=== PATIENT | female | born 1945 | race Caucasian/White ===

== ENCOUNTER 2018-11-28 09:29 | Observation (INO) | payer MEDICARE ==
[2018-11-28] MEDS ORDERED: Ondansetron PF 4 MG/2 ML Vial ONE (09:40)
[2018-11-28 10:13] LABS: #Lymphocytes 0.8 thou/uL (1.20-3.40); #Monocytes 0.2 thou/uL (0.11-0.59); #Neutrophils 5.6 thou/uL (1.40-6.50); %Basophils 0.1 % (0.0-1.0); %Eosinophils 0.7 % (0.0-10.0); %Monocytes 3.2 % (0.0-10.0); %Neutrophils 84.1 % (42.0-75.0); Hemoglobin 12.1 g/dL (12.0-16.0); Mean Corpuscular HGB CONC 33.9 g/dL (32.0-36.0); Mean Corpuscular Hemoglobin 25.4 pg (27.0-31.0); Mean Corpuscular Volume 74.9 fL (78.0-98.0); Mean Platelet Volume 9.3 fL (7.4-10.4); Platelet Count 232 thou/uL (130-400); RBC Distribution Width 17.7 % (11.5-14.5); Red Blood Cell (RBC) Count 4.77 mill/uL (4.20-5.40); White Blood Cell (WBC) Count 6.7 thou/uL (4.8-10.8)
[2018-11-28 10:23] LABS: ALT (SGPT) 27 U/L (8-55); AST (SGOT) 32 U/L (5-34); Albumin 4.2 g/dL (3.4-4.8); Alkaline Phosphatase 77 U/L (40-150); Anion Gap 15 mmol/L (10-20); BUN (Urea Nitrogen) 7 mg/dL (9.8-20.1); Bilirubin, Total 0.5 mg/dL (0.2-1.2); CK (CPK) 60 U/L (29-168); Calc. Creatinine Clearance 0 mL/min (70-130); Carbon Dioxide 21 mmol/L (23-31); Chloride 102 mmol/L (98-107); Estimated GFR-MDRD 79; Globulin 3.2 g/dL (2.4-3.5); Glucose 166 mg/dL (83-110); Potassium 3.5 mmol/L (3.5-5.1); Protein, Total 7.4 g/dL (6.0-8.3); Sodium 134 mmol/L (136-145)
[2018-11-28 10:42] LABS: MDiff Complete? YES; Microcytosis SLIGHT = 6-15 cells (100X) (0-5/hpf); Platelet Morphology Comment Appears Adequate; Polychromasia SLIGHT = 2-3 cells (100X) (0-2/hpf)
--- NOTE | 2018-11-28 11:05 | RAD ---
CHEST 1 VIEW: INDICATION: History of a Code Green with epigastric chest pain. COMPARISON: None. FINDINGS: There is elevation of the right hemidiaphragm. Lungs are clear. Heart size is upper limits of fernando l. There is scattered degenerative change. No pleural effusion or pneumothorax is evident. There a re surgical clips in the left axillary region. IMPRESSION: No acute abnormality. POS: CET
--- NOTE | 2018-11-28 11:43 | CT ---
CTA AORTIC DISSECTION PROTOCOL WITH IV CONTRAST AND 3D REFORMATTED IMAGING: Date: 11/28/18 INDICATION: Chest and upper abdominal pain with history of gastroesophageal disease, gastroesophageal reflux dise ase, and breast malignancy. FINDINGS: No comparisons are available. No acute aortic dissection, occlusion, nor aneurysmal dilatation is evident. No central pulmonary emb olus is evident. There is mild right basilar atelectasis. There is postsurgical change of left breast mastectomy. There is a small hiatal hernia. There is wall thickening involving the gastric antrum and proximal duodenum which can be related to p eptic ulcer disease. No free air or free fluid is evident. There is prominent fatty infiltration at the level of the liver with areas of focal fatty sparing benny r the gallbladder fossa. There is nodular contour of the liver that may reflect a component of cirrho sis. Spleen measures 12.6 cm. Adrenal glands appear within normal limits. Kidneys are normal appearing. Pancreas is normal appearing. No free fluid or enlarged lymph nodes are evident. There is a fibroid uterus. Visualized bladder, rectum, and perirectal soft tissues are unremarkable appearing. There is scattered diverticula involving the colon without evidence of active diverticulitis. There is thoracolumbar scoliosis. There is diffuse osteopenia. There is a bony hemangioma within T7. IMPRESSION: 1. No acute aortic stenosis, occlusion, or aneurysmal dilatation. 2. Cholelithiasis. 3. Wall thickening involving the gastric antrum and proximal duodenal bulb suspicious for peptic ulc er disease. Gastroenterology referral recommended. 4. Fatty liver with nodular contour of the liver is suspicious for chronic liver disease and possibl e cirrhosis. 5. Enlargement of the spleen up to 12.6 cm. 6. Cholelithiasis. 7. Fibroid uterus. 8. Colonic diverticulosis. POS: CET
[2018-11-28] MEDS ORDERED: ISOVUE-370 76%-LOCM 1 ML ONE (11:52)
[2018-11-28] MEDS ORDERED: Guaifenesin DM 100-10/5 ML UDCUP PO PRN (12:02)
[2018-11-28] MEDS ORDERED: Bisacodyl 5 MG TAB PO PRN (12:02)
[2018-11-28] MEDS ORDERED: Zolpidem Tartrate 5 MG TAB PO PRN (12:02)
[2018-11-28] MEDS ORDERED: Ondansetron PF 4 MG/2 ML Vial IVP PRN (12:02)
--- NOTE | 2018-11-28 12:10 | PDOC.EVN ---
Event Note - Event Note Event Note: H&P #[id number]
[2018-11-28] MEDS ORDERED: Nitroglycerin 0.4 MG TAB 1 EACH ONE (13:05)
[2018-11-28] MEDS ORDERED: Aspirin Chewable 81 MG TAB ONE ×2 (13:05→13:07)
--- NOTE | 2018-11-28 14:28 | HP ---
ADMITTING COMPLAINT: Chest pain, nausea, vomiting, as well as heartburn. HISTORY OF PRESENT ILLNESS: This is a 73-year-old female with past medical history of hypertension, hyperlipidemia, GERD as well as metastatic breast cancer, presenting to the hospital with a 2-day history of heartburn as well as 1- to 3-hour history of substernal chest pain, pressure-like in nature. The patient states this is the first time this has happened to her. She has not had these symptoms before. Denies any diarrhea, constipation, fevers, chills, or shortness of breath. Positive review of systems were nausea, vomiting, and chest pain. The patient currently states she feels better, but had medical intervention from the ER, was feeling worse before that. The patient otherwise has no other alleviating or aggravating factors. Nephew at bedside. Seen and examined in the ER. All questions answered. ALLERGIES: NO KNOWN DRUG ALLERGIES. HOME MEDICATIONS: See JUL. PAST MEDICAL HISTORY: 1. Hyperlipidemia. 2. GERD. 3. Hypertension. 4. Breast cancer with metastatic disease. SOCIAL HISTORY: Nondrinker and nonsmoker. FAMILY HISTORY: Noncontributory. REVIEW OF SYSTEMS: All systems reviewed. Pertinent positive in HPI, otherwise negative. PHYSICAL EXAMINATION: VITAL SIGNS: Blood pressure 138/88, respiratory rate of 18, temperature of 98, and O2 saturation 99% on room air. GENERAL: The patient lying in bed, in no acute discomfort. Appears overweight. HEENT: Pupils equal, round, and reactive to light and accommodation. Extraocular muscles intact. Oral cavity moist and pink. NECK: Supple, mobile, and nontender. Thyroid appreciated. RESPIRATORY: Clear to auscultation bilaterally. No rales, rhonchi, or wheezing appreciated. CARDIOVASCULAR: Regular rate and rhythm. S1 and S2. No murmurs, rubs, or gallops appreciated. ABDOMEN: Positive right upper quadrant tenderness. Positive Ceballos sign. Otherwise positive bowel sounds. Soft. Mild tenderness to palpation. EXTREMITIES: 2+ peripheral pulses. Trace pitting edema noted in bilateral lower extremities. NEUROLOGIC: Cranial nerves 2 through 12 intact. No loss of motor or sensory function. LABORATORY DATA: Reviewed. IMAGING STUDIES: Reviewed. ASSESSMENT AND PLAN: 1. Chest pain. 2. Right upper quadrant tenderness with positive Ceballos sign. 3. Hypertension. 4. Congestive heart failure. 5. Metastatic breast cancer. 6. Gastroesophageal reflux disease. 7. Hyperlipidemia. PLAN: At this point in time, we will admit the patient to observation services. Tele monitoring. Trend troponins. We will also obtain a HIDA scan to rule out possible biliary dyskinesia. The patient has possible cirrhosis on image studies, possible met lesion to the liver, unclear at this point in time. We will also check an echocardiogram given her lower extremity edema that the patient recently noticed. The patient did not have any shortness of breath or symptoms all those lines, so we will hold off on starting any diuretics for now. We will consider in a.m. the patient otherwise wishes to remain a full code. Case and plan discussed with the patient and her nephew at length. They understood and agreed with this plan. Job ID: [id number]
--- NOTE | 2018-11-28 17:43 | NM ---
EXAM: Nuclear medicine hepatobiliary scan HISTORY: Right upper quadrant abdominal pain TECHNIQUE: A nuclear medicine hepatobiliary scan was performed after administration of 5.2 mCi of jani hnetium 99m mebrofenin. COMPARISON: None FINDINGS: Prompt uptake of the radiopharmaceutical by the liver is seen. No photopenic liver defects are seen. Biliary activity is seen within 12 minutes. Gallbladder activity is not seen and the exam was carried out to 4 hours. Bowel activity is seen within 12 minutes. IMPRESSION: Nonvisualization the gallbladder is concerning for cholecystitis. This may be acute or chronic cholec ystitis. Correlate with LFTs and white blood cell count.
[2018-11-28 20:35] LABS: Troponin I Less than 0.010 ng/mL (< 0.028)
[2018-11-28] MEDS: Heparin 5,000 UNITS/ML VIAL SC SCH (20:54)
[2018-11-28] MEDS ORDERED: hydrALAZINE 20 MG/ML VIAL SLOW IVP PRN (22:20)
[2018-11-28] MEDS ORDERED: cloNIDine 0.1 MG TAB PO PRN (22:20)
[2018-11-29 02:59] LABS: #Monocytes 0.4 thou/uL (0.11-0.59); #Neutrophils 7.4 thou/uL (1.40-6.50); %Eosinophils 0.5 % (0.0-10.0); %Lymphocytes 11.8 % (21.0-51.0); %Monocytes 4.7 % (0.0-10.0); Hemoglobin 11.7 g/dL (12.0-16.0); Mean Corpuscular HGB CONC 33.3 g/dL (32.0-36.0); Mean Corpuscular Hemoglobin 25.1 pg (27.0-31.0); Mean Corpuscular Volume 75.4 fL (78.0-98.0); Mean Platelet Volume 8.9 fL (7.4-10.4); Platelet Count 240 thou/uL (130-400); RBC Distribution Width 17.9 % (11.5-14.5); Red Blood Cell (RBC) Count 4.68 mill/uL (4.20-5.40); White Blood Cell (WBC) Count 8.9 thou/uL (4.8-10.8)
[2018-11-29 03:24] LABS: Troponin I Less than 0.010 ng/mL (< 0.028)
[2018-11-29 03:28] LABS: Anion Gap 14 mmol/L (10-20); BUN (Urea Nitrogen) 9 mg/dL (9.8-20.1); Calc. Creatinine Clearance 0 mL/min (70-130); Calcium 10.1 mg/dL (7.8-10.44); Carbon Dioxide 22 mmol/L (23-31); Chloride 101 mmol/L (98-107); Estimated GFR-MDRD 82; Glucose 136 mg/dL (83-110); Potassium 3.4 mmol/L (3.5-5.1); Sodium 134 mmol/L (136-145)
[2018-11-29 08:10] VITALS: BP 143/71; TEMP 98.5
[2018-11-29] MEDS: Heparin 5,000 UNITS/ML VIAL SC SCH (08:32)
[2018-11-29] MEDS ORDERED: Prevnar 13-Val Conj/PF 0.5 ML SYRINGE IM ONE (09:00)
[2018-11-29] MEDS ORDERED: Aspirin 81 mg Enteric Coated Tablet PO SCH (09:00)
--- NOTE | 2018-11-29 11:00 | DIS ---
DATE OF ADMISSION: 11/28/2018 DATE OF DISCHARGE: 11/29/2018 ADMITTING DIAGNOSES: Chest pain, hyperlipidemia, hypertension, and breast cancer with metastatic disease. DISCHARGE DIAGNOSES: Chest pain, noncardiac in nature; chronic cholecystitis; gastroesophageal reflux disease; hypertension; and history of breast cancer with metastatic disease. HOSPITAL COURSE: This is a 73-year-old female presenting with epigastric chest pain for a duration of 2 to 3 hours. The patient was admitted to Internal Medicine Team. Given pre-existing high risk factors, the patient was evaluated with 3 troponins done over 24 hours, all 3 of which were negative. Basic metabolic panel as well as CBC were normal. The patient also had a HIDA scan done due to suspicion of possible gallbladder issues and was found to have chronic cholecystitis. The patient was given the option to have surgical evaluation in the hospital and potential gallbladder removal in the hospital; however, she stated that she would like to go home, see her PCP, and then schedule for an outpatient evaluation. Given the fact that at point in time of discharge, the patient did not have any symptoms; did not have any nausea, vomiting, diarrhea, constipation, chest pain, fevers, or shortness of breath; she was tolerating diet very well; and did not have any active symptoms of acute cholecystitis flare, it was decided that the patient would be given antibiotics at point in time of discharge. The patient was given Flagyl as well as oral Levaquin to be taken for 5 days and follow up with her outpatient PCP to schedule an outpatient surgical evaluation for possible cholecystectomy if deemed appropriate. The patient at point in time of discharge was stable and did not have any complaints and understood the care plan of care. DISPOSITION: Home. FOLLOWUP: Follow up with PCP within 1 week. MEDICATIONS: See MAR. ACTIVITY: As tolerated with assistance as needed. DIET: Low-fat, low-calorie, high-fiber diet. CONDITION: Stable. PROGNOSIS: Guarded. Once again, case and plan were discussed with the patient at length. She understood and agreed with this plan. Job ID: [id number]
--- NOTE | 2018-12-04 01:28 | EKG ---
Test Reason : CP Blood Pressure : / mmHG Vent. Rate : 067 BPM Atrial Rate : 067 BPM P-R Int : 150 ms QRS Dur : 090 ms QT Int : 422 ms P-R-T Axes : 059 000 057 degrees QTc Int : 445 ms Normal sinus rhythm Moderate voltage criteria for LVH, may be normal variant Borderline ECG Confirmed by ADRIAN IVY DO ([id number]), acquisitions editor BETHANY CLEANING ([id number]) on 12/04/2018 1:27:41 AM Referred By: Confirmed By:ADRIAN IVY DO
== END 2018-11-29 12:10 | disposition home or self-care (01) ==
LOC: ERS 09:29 → ERHOLD 12:42 → 2SW 16:41
PROVIDERS: ADMIT Internal Medicine; ATTEND Internal Medicine
DX: R07.2 Precordial pain (principal); K21.9 Gastro-esophageal reflux disease without esophagitis; E78.5 Hyperlipidemia, unspecified; I11.0 Hypertensive heart disease with heart failure; I50.9 Heart failure, unspecified; C50.919 Malignant neoplasm of unspecified site of unspecified female breast; C79.9 Secondary malignant neoplasm of unspecified site; K76.0 Fatty (change of) liver, not elsewhere classified; R16.1 Splenomegaly, not elsewhere classified; D25.9 Leiomyoma of uterus, unspecified; K57.30 Diverticulosis of large intestine without perforation or abscess without bleeding; K80.10 Calculus of gallbladder with chronic cholecystitis without obstruction; Z79.811 Long term (current) use of aromatase inhibitors; Z79.899 Other long term (current) drug therapy; Z88.0 Allergy status to penicillin; Z88.1 Allergy status to other antibiotic agents
CPT/HCPCS: 71045; 71275; 78227; 80048; 80053; 82550; 83690; 83880; 84484 ×3; 85025 ×2; 90670; 93005; 93306; 96374; 96375; 99285; A9537; G0009; G0378 ×2; 36415; 90471; J0360; J1644; J2405; Q9966

== ENCOUNTER 2019-06-02 09:56 | Outpatient (CLI) | payer MEDICARE ==
--- NOTE | 2019-06-02 10:49 | ULT ---
ULTRASOUND SOFT TISSUE CHEST WALL: History: Soft tissue mass. Comparison: None.. Findings: There is a wider than tall hypoechoic nodule within the left breast dermis. This mass measures 9 mm i n greatest dimension and does not extend into the subdermal fat. No definite extension to the skin surface is appreciated. Impression: Soft tissue mass in the dermis. Given history of mastectomy and if new, this may reflect recurrence g iven the lack of definite skin surface extension to suggest an epidermal inclusion cyst.
--- NOTE | 2019-06-02 14:12 | CT ---
CT Chest Abd Pelvis W Con History: Small cell B cell lymphoma, extranodal. Comparison: No outside imaging was available for review. There is a CT angiogram aortic dissection pr otocol November 28, 2018 available for review. Findings: Mild bronchiectasis right lower lobe and left lower lobe. No suspicious pulmonary nodule. N o pneumothorax. No effusion. Moderate prominent right paratracheal lymph node axial image 21 measures 7 mm short axis although has a retained normal fatty hilum. The pulmonary trunk no significa nt enlargement measures approximately 27 mm. Aortic contour is normal. No pericardial fluid. Prior left mastectomy. Soft tissue nodule along the anterior left dermis superficial to the pectorali s muscle axial image 18 which is unchanged from the 11/28/2018 examination measures approximately 7-8 mm. No axillary adenopathy. No internal mammary adenopathy. The thyroid is unremarkable. Within hepatic segment 8 is an ill-defined hypodense mass near the dome measuring up to 2.5 cm axial image 39. Also hepatic segment 8 adjacent to the portal vein is a 9 mm hypodense mass. Hepatic segment 7 abutting the capsule is a mass measuring up to 3.1 cm. Within hepatic segment 4B in the gal lbladder fossa is a 3 cm mass with capsular retraction. There are other smaller masses within the right lobe of the liver. The left lobe is atrophied. Normal proximal small bowel rotation. Cholelithiasis is present. Numerous calcified uterine fibroids. Dilated gonadal veins. Small fat and fluid containing supraumbilical ventral hernia with a very thin 3-4 mm neck. There is m ild induration of the anterior abdominal wall simultaneous fat. There appears to be a mass versus resolving diverticulitis of the sigmoid colon axial image 91. Exten sive diverticular disease of the descending and sigmoid colon. Numerous small retroperitoneal pelvic lymph nodes. The spleen is unchanged in appearance from the Oct exam and is slightly enlarged. No suspicious osteolytic or osteoblastic lesions. The sternum and manubrium are intact. No acute displaced rib fracture. Impression: 1. Multifocal hepatic masses as described suggesting metastatic disease. 2. Atrophy left lobe of the liver. 3. 7-8 mm soft tissue nodule along the left dermis superficial to the pectoralis major muscle. If thi s is new and the clinically is abnormal, an ultrasound-guided biopsy can be performed although it is relatively similar to the November 2018 exam. 4. Numerous uterine fibroids. 5. Mild infiltration of the anterior subcutaneous fat lower abdominal wall suggesting panniculitis. 6. Cholelithiasis without cholecystitis. 7. Possible mass versus resolving diverticulitis in the sigmoid colon axial image 91. Colonoscopy rec ommended. 8. Small fluid containing supraumbilical hernia with a very thin 3-4 mm neck.
== END 2019-06-02 09:57 | disposition home or self-care (01) ==
LOC: SCSULT 09:56
PROVIDERS: ATTEND Internal Medicine Hematology & Oncology
DX: C78.7 Secondary malignant neoplasm of liver and intrahepatic bile duct (principal); C50.912 Malignant neoplasm of unspecified site of left female breast; K76.89 Other specified diseases of liver; D25.9 Leiomyoma of uterus, unspecified; K80.20 Calculus of gallbladder without cholecystitis without obstruction; K42.9 Umbilical hernia without obstruction or gangrene; R22.2 Localized swelling, mass and lump, trunk
CPT/HCPCS: 71260; 74177

== ENCOUNTER 2019-06-16 07:44 | Day surgery (SDC) | payer MEDICARE ==
[2019-06-15 12:21] VITALS: BMI 36.3
[2019-06-16 08:16] LABS: PTT 32.4 SEC (22.9-36.1); Prothrombin Time 13.6 SEC (12.0-14.7)
[2019-06-16] MEDS ORDERED: Sodium Bicarbonate 2.5 MEQ/5 ML VIAL ONE (08:30)
[2019-06-16 08:37] VITALS: BP 186/71; TEMP 99
[2019-06-16] MEDS ORDERED: Lidocaine 1% PF 5 ML VIAL ONE (09:04)
--- NOTE | 2019-06-16 12:21 | ULT ---
EXAM: US Breast Bx US Guided PROVIDED CLINICAL HISTORY: Patient with history of left breast cancer in left mastectomy many years ago. Patient has a new small focal palpable abnormality in the left anterior chest subcutaneous soft tissues which was seen on a recent CT thorax on 06/02/2019 as well as ultrasound examination on this date. COMPARISON: Prior ultrasound exam and CT examinations on 06/02/2019 TECHNIQUE: The procedure including risks and complications were explained to the patient by Dr. Simpson, and infor [facility] consent was obtained. The area overlying the left chest wall nodule was meticulously prepped and draped in the usual sterile fashion. Initial attempts at fine needle aspiration of the nodule by Dr. Simpson were unsuccessful. As result, the nodule was palpated and imaged by myself. A 25-gauge needle was then placed in the nodule and positioning was confirmed with ultrasound guidance. Fine-nee dle aspiration was performed followed by 3 additional fine-needle aspirations with 25-gauge needle. Preliminary evaluation of the specimens was performed by the pathologist. After fine-needle aspiration was performed, hemostasis was achieved with direct pressure. Dry sterile dressing was placed at puncture sites. The patient tolerated the procedure well and without immediate complication. IMPRESSION: 1. Small hypoechoic nodule subcutaneous soft tissues left chest near the skin surface measuring 7 mm in maximal dimensions. 2. Technically successful fine-needle aspiration of the small hypoechoic nodule left chest correspond ing to patient's palpable abnormality. A total of four 25-gauge fine-needle aspirations were obtained. Initial preliminary evaluation of the nodule by the pathologist suggests atypical cells rel ated to malignancy. Final interpretation is pending.
== END 2019-06-16 10:30 | disposition home or self-care (01) ==
LOC: ULT 07:44
PROVIDERS: ATTEND Internal Medicine Hematology & Oncology
PROC: 0H9U3ZX Drainage of Left Breast, Percutaneous Approach, Diagnostic (ICD-10-PCS; principal; 2019-06-16)
DX: R22.2 Localized swelling, mass and lump, trunk (principal); Z85.3 Personal history of malignant neoplasm of breast; Z79.899 Other long term (current) drug therapy; Z88.0 Allergy status to penicillin; Z88.8 Allergy status to other drugs, medicaments and biological substances
CPT/HCPCS: 19083; 85610; 85730; 88172; 88173; 88177; J2001

== ENCOUNTER 2019-07-31 09:53 | Outpatient (CLI) | payer MEDICARE ==
--- NOTE | 2019-07-31 13:38 | CT ---
CT OF THE CHEST AND ABDOMEN WITH IV CONTRAST INDICATION: 73-year-old female with history of breast cancer COMPARISON: CT of the chest, abdomen and pelvis dated June 02, 2019 FINDINGS: CHEST: Lungs: No suspicious pulmonary nodule is demonstrated. There is mild linear scarring involving the ri ght lower lobe with areas of adjacent bronchiectasis. Pleural space: No effusion. Mediastinum: No pathologically enlarged lymph nodes are evident. Axilla: No pathologically enlarged lymph nodes. There is postprocedural change of a left mastectomy. ABDOMEN: Liver: Multiple hypodense lesions are seen involving the liver consistent with metastatic disease. Th e atrophied left hepatic lobe is stable appearing. The lesion within segment 8 of the right hepatic dome is slightly larger measuring 3.2 cm were previously measured 2.9 cm. The lesion within segment 5 , adjacent to the gallbladder fossa measures 3.8 cm where previously measured up to 3.2 cm. The lesion within segment 7 of the right hepatic lobe measures 2.8 cm previously measured 2.6 cm. The add itional lesion within segment 7 of the right hepatic lobe on image 53 of series 3 measures 2.4 cm were present measuring 2.1 cm. Gallbladder: Stable cholelithiasis Pancreas: Normal. Adrenal glands: Normal. Spleen: Normal. Kidneys and ureters: Normal. No hydronephrosis. Vasculature: There are mild vascular calcifications seen involving the visualized vasculature. Lymph nodes:No lymphadenopathy. Free fluid in abdomen:No free fluid is evident. Osseous structures: No acute osseous abnormality. No destructive osteolytic or osteoblastic lesion i s identified. There is scattered degenerative and osteoarthritic changes. Soft tissues:Normal. IMPRESSION: 1. Worsening hepatic metastatic disease. 2. No evidence to suggest metastatic disease to the thorax. 3. Stable cholelithiasis
== END 2019-07-31 09:54 | disposition home or self-care (01) ==
LOC: SCSCT 09:53
PROVIDERS: ATTEND Internal Medicine Hematology & Oncology
DX: C50.912 Malignant neoplasm of unspecified site of left female breast (principal); C78.7 Secondary malignant neoplasm of liver and intrahepatic bile duct; K80.20 Calculus of gallbladder without cholecystitis without obstruction
CPT/HCPCS: 71260; 74160

== ENCOUNTER 2019-08-18 07:01 | Day surgery (SDC) | payer MEDICARE ==
--- NOTE | 2019-08-16 07:49 | HP ---
HISTORY: Katlin Roper is a 73-year-old female with metastatic breast cancer, followed by Dr. Lei and Dr. Roldan, presents in need of a MediPort for antineoplastic chemotherapy access. The patient is accompanied by her niece. She is allergic to penicillin and erythromycin. The patient has had a left mastectomy in 2004, ER/MA positive, underwent 5 years of letrozole, progressing on Afinitor and exemestane. She relapsed in 2014, found to have pleural and liver metastasis, positive thoracentesis fluid in May of 2019. She developed a small mass over her left chest wall. Biopsy showed atypical cells. She is noted on CAT scan of August 17 to have liver metastasis. She has refused past colonoscopies. She has osteoporosis. Plan is to place a MediPort. She understands risks, benefits, and consents. PAST MEDICAL HISTORY: Hypertension, osteoarthritis, and metastatic breast cancer. PAST SURGICAL HISTORY: Left mastectomy, 0, para 0. 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 She has had foot surgery in 1949 and tonsillectomy. REVIEW OF SYSTEMS: Noncontributory. PHYSICAL EXAMINATION: VITAL SIGNS: Weight 182 pounds, height 59 inches tall. Blood pressure 166/69, heart rate 71 HEAD, EARS, EYES, NOSE, AND THROAT: Unremarkable. LUNGS: Clear to auscultation. CARDIAC: Regular rate and rhythm without murmur or gallop. ABDOMEN: Soft, nontender, obese. Left mastectomy wound well healed. Prosthetic bra in place. ASSESSMENT AND PLAN: Metastatic breast cancer. PLAN: MediPort placement, right chest. She understands risks and benefits and consents. Job ID: [id number]
[2019-08-17 13:19] VITALS: BMI 35.9
[2019-08-18] MEDS ORDERED: Levofloxacin 500 mg/D5W 100 ml Premix Bag ONE (08:11)
[2019-08-18] MEDS ORDERED: Lidocaine 1% w/Epinephrine 1:100K 20 ML VIAL ONE (08:50)
[2019-08-18] MEDS ORDERED: Bupivacaine PF 0.5% 30 ML VIAL ONE (08:50)
[2019-08-18] MEDS ORDERED: Midazolam HCl 2 mg/2 ml Vial ONE (08:54)
[2019-08-18] MEDS ORDERED: PROPOFOL 40 ML ONE (08:54)
[2019-08-18] MEDS ORDERED: Fentanyl 100 MCG/2 ML VIAL ONE (08:54)
[2019-08-18] MEDS ORDERED: Ondansetron PF 4 MG/2 ML Vial ONE (10:10)
--- NOTE | 2019-08-18 10:19 | OP ---
DATE OF PROCEDURE: 08/18/2019 PREOPERATIVE DIAGNOSIS: Recurrent breast cancer. POSTOPERATIVE DIAGNOSIS: Recurrent breast cancer. PROCEDURE PERFORMED: Right subclavian vein MediPort, low-profile, fluoroscopy used. ANESTHESIA: Intravenous sedation, local 0.5% Marcaine 30 mL mixed with 1% Xylocaine with epinephrine 20 mL. DESCRIPTION OF PROCEDURE: The patient was taken to the operating room, where under intravenous sedation, neck and chest were prepared with ChloraPrep and draped in routine fashion. Local anesthetic was infiltrated in the skin and subcutaneous tissue about the operative site. Right subclavian vein infraclavicular approach used to access. Obtained good return of venous blood. J-wire threaded. Trocar catheter removed. Skin site was enlarged sharply. Skin incision was made, carried down to skin and subcutaneous tissue and a subcutaneous pocket created with blunt and sharp dissection, noting good hemostasis. Dilator and Peel-Away sheath were placed over the J-wire in superior vena cava. Dilator and J-wire were removed. Catheter was placed through the Peel-Away sheath. Peel-Away sheath was removed. Catheter tip was placed in optimal position. Superior vena cava catheter tailored to length and connected to the MediPort, which was secured to the chest wall with 2 interrupted sutures of 3-0 Prolene. As a MediPort was placed in the pocket, subcutaneous tissue was approximated with 3-0 Monocryl, skin with subdermal 4-0 Monocryl and [place] glue applied. MediPort accessed with a Ramirez needle, obtaining good return of venous blood and flushed with heparinized saline solution. Final fluoroscopic images revealed good MediPort placement. The patient tolerated the procedure well. Job ID: [id number]
--- NOTE | 2019-08-18 11:09 | RAD ---
PORTABLE CHEST 1 VIEW: Date: 08/18/2019 Time: 0958 hours HISTORY: MediPort placement. FINDINGS/IMPRESSION: Comparison made with exam of 11/28/2018. There is continued elevation of the right hemidiaphragm. The heart size is stable. Postop changes in the left axilla are again seen. There has been placement of a right subclavian Port-A-Cath with tip in the projection of the SVC. No lobar consolidation, pneumothoraces, or large effusions are seen. POS: TPC
[2019-08-18] MEDS ORDERED: PHENYLEPHRINE-NS 100 MCG/ML 10 ML SYRINGE ONE (12:54)
== END 2019-08-18 11:00 | disposition home or self-care (01) ==
LOC: SDC 07:01
PROVIDERS: ATTEND Specialist
PROC: 05H533Z Insertion of Infusion Device into Right Subclavian Vein, Percutaneous Approach (ICD-10-PCS; principal; 2019-08-18)
DX: C50.912 Malignant neoplasm of unspecified site of left female breast (principal); I10 Essential (primary) hypertension; M81.0 Age-related osteoporosis without current pathological fracture; Z79.899 Other long term (current) drug therapy; Z88.0 Allergy status to penicillin; Z88.1 Allergy status to other antibiotic agents; C78.7 Secondary malignant neoplasm of liver and intrahepatic bile duct
CPT/HCPCS: 36561; 71045; C1788; 86300; J1642; J1956; J2250; J2405; J2704; J3010; S0020

== ENCOUNTER 2019-11-07 08:22 | Outpatient (CLI) | payer MEDICARE ==
--- NOTE | 2019-11-07 14:56 | CT ---
CT THORAX WITH CONTRAST CT ABDOMEN WITH CONTRAST CT PELVIS WITH CONTRAST: DATE: 11/07/2019 HISTORY: 74-year-old female with breast cancer with liver metastasis. Restaging for response to treatment. COMPARISON: CT chest and abdomen 07/31/2019 CT chest abdomen pelvis 06/02/2019 TECHNIQUE: IV iodinated contrast media: Administered Oral contrast media: Redicat 2 Single phase scans of thorax, abdomen, and pelvis. FINDINGS: THORAX: No suspicious pulmonary nodule, consolidation, pulmonary edema, pneumothorax, pleural effusion, media stinal lymphadenopathy, thoracic aortic aneurysm, or any significant interval change. Absent left breast. No pericardial effusion. Small sliding hiatal hernia. ABDOMEN: Again noted is the very small, almost absent left lobe of liver. Multifocal small, patchy ill-defined, faint, slightly low-attenuation hepatic lesions, presumably rep resenting metastases, are all very difficult to measure because of their ill-defined, faint margins. Furthermore, slight variance in timing of scan between the previous CT on the current CT res ults in slight differences in enhancement or washout of the margins, thereby further making it difficult to compare sizes of these metastases. However, they are all probably slightly smaller in si ze. For example, in hepatic segment 5 of the right lobe of liver, just lateral to the gallbladder fossa, a lesion was measured as approximately 3.8 x 3.1 x 2 cm. It currently measures 3.5 x 2.5 x 2 c m. (Axial image 54 of 119, series 3; coronal image 67 of 172 series 602; sagittal image 87 of 236 series 603). No new hepatic lesions. Gallstones within nondistended gallbladder. No major pathology of pancreas, kidneys, adrenals, abdomi nal aorta. No ascites, small bowel dilation, pneumoperitoneum, or any other significant interval change. PELVIS: Huge, heavily calcified 11 x 6 x 6.5 cm calcified pedunculated leiomyoma. Protruding anteriorly from right side of the atrophic, postmenopausal uterus. Posterior to that, there is a large, 5 x 4.5 x 4 cm heavily calcified leiomyoma exophytically protruding from the right posterior aspect of the uterus . Moderately large amount of stool and enteric contrast material expands the rectum. Slightly enlarged bilateral internal and external iliac chain lymph nodes. No free fluid. No colonic diverticu litis. No interval change overall compared to 11/28/2018. SKELETON: At approximately T7, there is either a large hemangioma of bone or Paget's disease involving the vert ebral body. Multilevel degenerative disc disease. Mild scoliosis at thoracic lumbar junction. No destructive osseous lesion. IMPRESSION: 1) apparent slight interval decrease in sizes of the multiple hepatic metastatic lesions 2) no other interval change 3) cholelithiasis. 4) 2 large, pedunculated, heavily calcified uterine leiomyomata (fibroids)
== END 2019-11-07 08:23 | disposition home or self-care (01) ==
LOC: SCSCT 08:22
PROVIDERS: ATTEND Internal Medicine Hematology & Oncology
DX: C50.912 Malignant neoplasm of unspecified site of left female breast (principal); C78.7 Secondary malignant neoplasm of liver and intrahepatic bile duct; K80.20 Calculus of gallbladder without cholecystitis without obstruction; D25.9 Leiomyoma of uterus, unspecified
CPT/HCPCS: 71260; 74177

== ENCOUNTER 2020-03-11 08:14 | Outpatient (CLI) | payer MEDICARE ==
--- NOTE | 2020-03-11 11:39 | CT ---
CT Chest Abd Pelvis W Con History: Breast cancer Comparison: CT chest abdomen and pelvis November 07, 2019 Findings: Mild bronchiectasis and scarring right middle lobe and right lower lobe. Chronic elevation right hemidiaphragm. No suspicious pulmonary nodule. No pneumothorax. No effusion. Prior left mastectomy. No axillary adenopathy. No right axillary adenopathy. No mediastinal adenopath y. The aortic contour is normal without aneurysmal dilatation. Small fat-containing umbilical hernia. No significant size change of the hepatic segment 8 mass measuring 2.3 cm in greatest dimension. No s ignificant size change of the hepatic segment 7 mass with peripheral retraction measuring up to 3.1 cm. Small 5 to 6 mm mass hepatic segment 5 is also unchanged. There is associated capsular retraction. He patic segment 5 mass adjacent to the gallbladder fossa is also unchanged measuring 2.4 cm with peripheral capsular retraction. No dilated loops of large or small bowel. Large calcified fibroids. Endometrial mass with adjacent fl uid surrounding it, unchanged from the comparison exam and may reflect a submucosal polyp versus fibroid. This is similar dating back to 2019. Similar appearance of the spleen was slightly enlarged. Adrenal glands unremarkable. No hydronephrosi s. No retroperitoneal periaortic adenopathy. Moderate facet arthrosis of the lower lumbar spine. Scattered hemangiomas. Healing manubrial fracture. No acute displaced rib fracture. No acute pathologic fracture. The osseous pelvis is intact. Impression: 1. Stable disease without interval growth of the hepatic masses. Given the adjacent peripheral capsul ar retraction, posttreatment scar is currently favored. 2. No new foci of metastatic disease. 3. No acute inflammatory process within the chest, abdomen or pelvis. 4. Endometrial mass with adjacent fluid in the endometrial cavity is unchanged from 2019 may reflect a mucosal polyp or fibroid. Nonemergent follow-up pelvic ultrasound may be beneficial. 5. Cholelithiasis without cholecystitis. 6. Small paraesophageal hernia.
== END 2020-03-11 08:15 | disposition home or self-care (01) ==
LOC: SCSCT 08:14
PROVIDERS: ATTEND Internal Medicine Hematology & Oncology
DX: C50.912 Malignant neoplasm of unspecified site of left female breast (principal); C78.7 Secondary malignant neoplasm of liver and intrahepatic bile duct; K80.20 Calculus of gallbladder without cholecystitis without obstruction; R16.0 Hepatomegaly, not elsewhere classified; N85.8 Other specified noninflammatory disorders of uterus; K44.9 Diaphragmatic hernia without obstruction or gangrene
CPT/HCPCS: 71260; 74177

== ENCOUNTER 2021-07-07 08:12 | Outpatient (CLI) | payer MEDICARE | END 2021-07-07 08:13 | disposition home or self-care (01) | LOC: CT 08:12 | PROVIDERS: ATTEND Internal Medicine Hematology & Oncology | DX: C50.912 Malignant neoplasm of unspecified site of left female breast (principal); C78.7 Secondary malignant neoplasm of liver and intrahepatic bile duct; K80.20 Calculus of gallbladder without cholecystitis without obstruction; D25.9 Leiomyoma of uterus, unspecified; K57.90 Diverticulosis of intestine, part unspecified, without perforation or abscess without bleeding; M47.9 Spondylosis, unspecified | CPT/HCPCS: 71260; 74177; 78306; 82565; A9503 ==

== ENCOUNTER 2021-09-29 09:13 | Outpatient (CLI) | payer MEDICARE ==
[2021-09-29] MEDS ORDERED: Iopamidol-370 76% 500 ML 1 ML ONE (09:15)
== END 2021-09-29 09:14 | disposition home or self-care (01) ==
LOC: BICCT 09:13
PROVIDERS: ATTEND Internal Medicine Hematology & Oncology
DX: C50.912 Malignant neoplasm of unspecified site of left female breast (principal); C78.7 Secondary malignant neoplasm of liver and intrahepatic bile duct
CPT/HCPCS: 71260; 74177; Q9967

== ENCOUNTER 2021-11-13 12:53 | Inpatient (IN) | payer MEDICARE ==
[~2021-11-13 12:53] MED LIST: ISOVUE-370 76%-LOCM 1 ML ONE
[2021-11-13 14:18] LABS: Hemoglobin 6.8 g/dL (12.0-16.0); Mean Corpuscular HGB CONC 34.2 g/dL (32.0-36.0); Mean Corpuscular Hemoglobin 35.1 pg (27.0-31.0); Platelet Count 63 thou/uL (130-400); RBC Distribution Width 21.4 % (11.5-14.5); Red Blood Cell (RBC) Count 1.94 mill/uL (4.20-5.40); White Blood Cell (WBC) Count 1.5 thou/uL (4.8-10.8)
[2021-11-13 14:25] LABS: ALT (SGPT) 23 U/L (8-55); AST (SGOT) 44 U/L (5-34); Albumin 2.5 g/dL (3.4-4.8); Alkaline Phosphatase 69 U/L (40-110); Anion Gap 14 mmol/L (10-20); BUN (Urea Nitrogen) 55 mg/dL (9.8-20.1); Bilirubin, Total 3.8 mg/dL (0.2-1.2); Calc. Creatinine Clearance 0 mL/min (70-130); Calcium 8.3 mg/dL (7.8-10.44); Carbon Dioxide 25 mmol/L (23-31); Chloride 95 mmol/L (98-107); Glucose 137 mg/dL (83-110); Potassium 3.2 mmol/L (3.5-5.1); Protein, Total 4.5 g/dL (5.8-8.1); Sodium 131 mmol/L (136-145)
[2021-11-13 14:47] LABS: Band 4 % (5-11); Lymphocytes 66 % (21-51); MDiff Complete? YES; Neutrophil 30 % (42-75); Ovalocytes SLIGHT = 2-5 cells (100X) (0-1/hpf); Platelet Morphology Comment Appears Decreased; Polychromasia SLIGHT = 2-3 cells (100X) (0-2/hpf); Reflex for Review?? YES; Schistocytes SLIGHT = 2-5 cells (100X) (0-1/hpf); Tear Drops SLIGHT = 2-5 cells (100X) (0-1/hpf)
[2021-11-13 14:49] LABS: CKMB 2.1 ng/mL (0-6.6)
[2021-11-13] MEDS ORDERED: Aspirin 325 MG TAB ONE (16:12)
[2021-11-13] MEDS ORDERED: Potassium Chloride 20 MEQ TAB PO SCH ×2 (16:15→19:30)
[2021-11-13] MEDS ORDERED: Ondansetron ODT 4 MG TAB SL PRN (17:45)
[2021-11-13] MEDS ORDERED: Acetaminophen 325 MG TAB PO PRN ×2 (17:45→18:37)
[2021-11-13] MEDS ORDERED: Ondansetron PF 4 MG/2 ML Vial IVP PRN ×2 (17:45→18:37)
[2021-11-13] MEDS ORDERED: Sodium Chloride 0.9% 1,000 ML IV SCH (17:45)
[2021-11-13] MEDS ORDERED: NS 0.9% w/ 20 MEQ KCL 1,000 ML/1,000 ML BAG IV SCH (18:37)
[2021-11-13] MEDS: Furosemide 40 MG/4 ML VIAL SLOW IVP SCH (21:00)
[2021-11-14 04:59] LABS: Anion Gap 14 mmol/L (10-20); BUN (Urea Nitrogen) 52 mg/dL (9.8-20.1); Calc. Creatinine Clearance 53 mL/min (70-130); Calcium 7.9 mg/dL (7.8-10.44); Carbon Dioxide 23 mmol/L (23-31); Chloride 98 mmol/L (98-107); Glucose 102 mg/dL (83-110); Potassium 3.3 mmol/L (3.5-5.1); Sodium 132 mmol/L (136-145)
[2021-11-14 05:27] LABS: Band 1 % (5-11); Hemoglobin 6.9 g/dL (12.0-16.0); Lymphocytes 42 % (21-51); MDiff Complete? YES; Mean Corpuscular Hemoglobin 36.1 pg (27.0-31.0); Mean Platelet Volume 6.9 fL (7.4-10.4); Neutrophil 56 % (42-75); Platelet Count 45 thou/uL (130-400); Platelet Morphology Comment Appears Decreased; RBC Distribution Width 20.1 % (11.5-14.5); Reactive Lymphocytes 1 % (0-10); Red Blood Cell (RBC) Count 1.92 mill/uL (4.20-5.40); Schistocytes SLIGHT = 2-5 cells (100X) (0-1/hpf); Tear Drops SLIGHT = 2-5 cells (100X) (0-1/hpf); White Blood Cell (WBC) Count 1.4 thou/uL (4.8-10.8)
[2021-11-14 07:14] LABS: SARS-CoV-2 NAA Rapid Test Not Detected (NotDetected)
[2021-11-14 10:08] LABS: Critical Call Chem Troponin I RESULT DECREASING; Troponin I 0.385 ng/mL (< 0.028)
[2021-11-14] MEDS: Albumin 25% 25 GM/100 ML BOT IVPB SCH ×3 (15:08→22:55)
[2021-11-14 15:45] LABS: Reticulocyte Count 0.3 % (0.5-1.5)
[2021-11-14] MEDS: Furosemide 40 MG/4 ML VIAL SLOW IVP SCH (17:50)
[2021-11-14 18:03] LABS: Hemoglobin 8.1 g/dL (12.0-16.0)
[2021-11-15 00:17] LABS: Hemoglobin 7.4 g/dL (12.0-16.0)
[2021-11-15] MEDS: Albumin 25% 25 GM/100 ML BOT IVPB SCH (03:57)
[2021-11-15 04:55] LABS: ALT (SGPT) 20 U/L (8-55); AST (SGOT) 41 U/L (5-34); Albumin 3.2 g/dL (3.4-4.8); Alkaline Phosphatase 54 U/L (40-110); Anion Gap 14 mmol/L (10-20); BUN (Urea Nitrogen) 48 mg/dL (9.8-20.1); Bilirubin, Total 4.6 mg/dL (0.2-1.2); Calc. Creatinine Clearance 52 mL/min (70-130); Calcium 8.5 mg/dL (7.8-10.44); Carbon Dioxide 25 mmol/L (23-31); Chloride 100 mmol/L (98-107); Globulin 1.3 g/dL (2.4-3.5); Glucose 115 mg/dL (83-110); Protein, Total 4.5 g/dL (5.8-8.1); Sodium 136 mmol/L (136-145)
[2021-11-15] MEDS ORDERED: Sodium Chloride 0.9% 500 ML IV SCH (05:00)
[2021-11-15] MEDS ORDERED: Electrolyte Replacement Protocol FS PRN (05:45)
[2021-11-15 05:58] LABS: Potassium 2.9 mmol/L (3.5-5.1)
[2021-11-15 06:06] LABS: #Lymphocytes 0.6 thou/uL (1.20-3.40); #Neutrophils 1.1 thou/uL (1.40-6.50); %Basophils 0.3 % (0.0-1.0); %Eosinophils 0.9 % (0.0-10.0); %Lymphocytes 36.6 % (21.0-51.0); %Monocytes 0.8 % (0.0-10.0); %Neutrophils 61.5 % (42.0-75.0); Anisocytosis MODERATE=16-30 cells (100X) (0-5/hpf); Hemoglobin 6.8 g/dL (12.0-16.0); MDiff Complete? YES; Mean Corpuscular HGB CONC 35.1 g/dL (32.0-36.0); Mean Corpuscular Hemoglobin 34.7 pg (27.0-31.0); Mean Corpuscular Volume 98.9 fL (78.0-98.0); Mean Platelet Volume 14.2 fL (7.4-10.4); Microcytosis SLIGHT = 6-15 cells (100X) (0-5/hpf); Platelet Count 25 thou/uL (130-400); RBC Distribution Width 19.3 % (11.5-14.5); Red Blood Cell (RBC) Count 1.95 mill/uL (4.20-5.40); Tear Drops SLIGHT = 2-5 cells (100X) (0-1/hpf); White Blood Cell (WBC) Count 1.8 thou/uL (4.8-10.8)
[2021-11-15] MEDS: Furosemide 40 MG/4 ML VIAL SLOW IVP SCH ×2 (07:00→15:39)
[2021-11-15] MEDS: Spironolactone 25 MG TAB PO SCH (10:11)
[2021-11-15] MEDS: Potassium Chloride 20 MEQ TAB PO SCH ×3 (10:15→13:26)
[2021-11-15 13:30] LABS: Hemoglobin 7.5 g/dL (12.0-16.0); Mean Corpuscular HGB CONC 34.6 g/dL (32.0-36.0); Mean Corpuscular Hemoglobin 34.6 pg (27.0-31.0); Mean Corpuscular Volume 99.9 fL (78.0-98.0); Platelet Count 27 thou/uL (130-400); RBC Distribution Width 19.4 % (11.5-14.5); Red Blood Cell (RBC) Count 2.18 mill/uL (4.20-5.40)
[2021-11-15 13:32] LABS: #Lymphocytes 0.7 thou/uL (1.20-3.40); #Monocytes 0.1 thou/uL (0.11-0.59); #Neutrophils 1.2 thou/uL (1.40-6.50); %Eosinophils 0.9 % (0.0-10.0); %Lymphocytes 35.7 % (21.0-51.0); %Monocytes 2.2 % (0.0-10.0); %Neutrophils 61.2 % (42.0-75.0)
[2021-11-15] MEDS ORDERED: ISOVUE-370 76%-LOCM 1 ML ONE (13:35)
[2021-11-15 13:42] LABS: INR-International Normal Ratio 1.5; Prothrombin Time 18.4 sec (12.0-14.7)
[2021-11-15 13:43] LABS: Fibrinogen 340 mg/dL (253-463); PTT 40.9 sec (22.9-36.1)
[2021-11-15 13:52] LABS: D-Dimer Test 4.55 *mcg/mL (0.27-0.43)
[2021-11-15 13:53] LABS: Anisocytosis SLIGHT = 6-15 cells (100X) (0-5/hpf); MDiff Complete? YES; Ovalocytes SLIGHT = 2-5 cells (100X) (0-1/hpf); Polychromasia SLIGHT = 2-3 cells (100X) (0-2/hpf); Schistocytes SLIGHT = 2-5 cells (100X) (0-1/hpf)
[2021-11-15] MEDS ORDERED: Potassium Chloride 20 MEQ TAB PO SCH (14:00)
[2021-11-15 14:51] LABS: Platelet Count 27 thou/uL (130-400)
[2021-11-15] MEDS: Nitroglycerin 0.4 MG TAB (25 Tab Bottle) SL PRN ×2 (18:20→18:35)
[2021-11-15] MEDS ORDERED: Furosemide 40 MG/4 ML VIAL SLOW IVP SCH (18:30)
[2021-11-15 19:37] LABS: Potassium 3.8 mmol/L (3.5-5.1)
[2021-11-16 04:43] LABS: INR-International Normal Ratio 1.5
[2021-11-16 04:57] LABS: #Lymphocytes 0.7 thou/uL (1.20-3.40); #Monocytes 0.1 thou/uL (0.11-0.59); #Neutrophils 2.7 thou/uL (1.40-6.50); %Basophils 0.1 % (0.0-1.0); %Eosinophils 0.6 % (0.0-10.0); %Lymphocytes 19.8 % (21.0-51.0); %Monocytes 1.8 % (0.0-10.0); %Neutrophils 77.7 % (42.0-75.0); Hemoglobin 9.3 g/dL (12.0-16.0); MDiff Complete? YES; Mean Corpuscular HGB CONC 35.7 g/dL (32.0-36.0); Mean Corpuscular Hemoglobin 35.1 pg (27.0-31.0); Mean Corpuscular Volume 98.1 fL (78.0-98.0); Mean Platelet Volume 7.8 fL (7.4-10.4); Platelet Count 38 thou/uL (130-400); Platelet Morphology Comment Appears Decreased; RBC Distribution Width 18.4 % (11.5-14.5); Red Blood Cell (RBC) Count 2.65 mill/uL (4.20-5.40); Tear Drops SLIGHT = 2-5 cells (100X) (0-1/hpf); White Blood Cell (WBC) Count 3.5 thou/uL (4.8-10.8)
[2021-11-16 04:59] LABS: Anion Gap 14 mmol/L (10-20); BUN (Urea Nitrogen) 36 mg/dL (9.8-20.1); Bilirubin, Total 6.9 mg/dL (0.2-1.2); Calc. Creatinine Clearance 59 mL/min (70-130); Carbon Dioxide 26 mmol/L (23-31); Chloride 102 mmol/L (98-107); Glucose 139 mg/dL (83-110); Potassium 3.2 mmol/L (3.5-5.1); Sodium 139 mmol/L (136-145)
[2021-11-16] MEDS: Furosemide 40 MG/4 ML VIAL SLOW IVP SCH ×2 (05:13→15:10)
[2021-11-16] MEDS: Albumin 25% 25 GM/100 ML BOT IVPB SCH ×4 (05:13→23:31)
[2021-11-16] MEDS ORDERED: Potassium Chloride 20 MEQ TAB PO SCH (06:30)
[2021-11-16 09:57] LABS: Reticulocyte Count 0.3 % (0.5-1.5)
[2021-11-16] MEDS: Spironolactone 25 MG TAB PO SCH (10:30)
[2021-11-17] MEDS ORDERED: Lorazepam 1 MG TAB PO SCH (03:00)
[2021-11-17 04:29] LABS: #Lymphocytes 1.2 thou/uL (1.20-3.40); #Monocytes 0.1 thou/uL (0.11-0.59); #Neutrophils 2.5 thou/uL (1.40-6.50); %Eosinophils 1.1 % (0.0-10.0); %Monocytes 2.7 % (0.0-10.0); %Neutrophils 66.2 % (42.0-75.0); Hemoglobin 7.9 g/dL (12.0-16.0); Mean Corpuscular HGB CONC 35.1 g/dL (32.0-36.0); Mean Corpuscular Hemoglobin 34.9 pg (27.0-31.0); Mean Corpuscular Volume 99.5 fL (78.0-98.0); Mean Platelet Volume 11.2 fL (7.4-10.4); Platelet Count 44 thou/uL (130-400); RBC Distribution Width 17.7 % (11.5-14.5); Red Blood Cell (RBC) Count 2.27 mill/uL (4.20-5.40); White Blood Cell (WBC) Count 3.8 thou/uL (4.8-10.8)
[2021-11-17 04:38] LABS: INR-International Normal Ratio 1.8; Prothrombin Time 21.6 sec (12.0-14.7)
[2021-11-17 04:54] LABS: Anion Gap 15 mmol/L (10-20); BUN (Urea Nitrogen) 28 mg/dL (9.8-20.1); Bilirubin, Total 6.1 mg/dL (0.2-1.2); Calc. Creatinine Clearance 63 mL/min (70-130); Calcium 9.2 mg/dL (7.8-10.44); Carbon Dioxide 26 mmol/L (23-31); Chloride 104 mmol/L (98-107); Glucose 123 mg/dL (83-110); Potassium 3.1 mmol/L (3.5-5.1); Sodium 142 mmol/L (136-145)
[2021-11-17] MEDS ORDERED: Potassium Chloride 20 MEQ TAB PO SCH (05:00)
[2021-11-17] MEDS: Furosemide 40 MG/4 ML VIAL SLOW IVP SCH ×2 (06:42→15:09)
[2021-11-17] MEDS: Potassium Chloride 20 MEQ in Premix Bag 1 BAG IVPB SCH ×2 (06:42→08:35)
[2021-11-17] MEDS ORDERED: Diltiazem HCl 125 MG in Premix Bag 1 BAG IVPB SCH (08:15)
[2021-11-17] MEDS ORDERED: Magnesium 2 GM/50 ML(in water) 2 GM in Premix Bag 1 BAG IVPB SCH ×2 (08:15→10:00)
[2021-11-17] MEDS ORDERED: Diltiazem 125 MG in Sodium Chloride 0.9% 100 ML IVPB SCH (08:15)
[2021-11-17] MEDS ORDERED: Metoprolol Tartrate 5 MG/5 ML VIAL IVP SCH (08:15)
[2021-11-17] MEDS: Spironolactone 25 MG TAB PO SCH (08:35)
[2021-11-17 08:47] LABS: Magnesium 1.6 mg/dL (1.6-2.6)
[2021-11-17] MEDS ORDERED: Digoxin 0.5 MG/2 ML AMP SLOW IVP SCH (10:45)
[2021-11-17] MEDS: Diltiazem HCl SR 60 mg Capsule PO SCH ×2 (15:09→20:58)
[2021-11-17] MEDS ORDERED: Phytonadione 10 MG/ML AMP SC SCH (20:30)
[2021-11-18 04:35] LABS: INR-International Normal Ratio 1.6; Prothrombin Time 19.4 sec (12.0-14.7)
[2021-11-18 05:05] LABS: HBCM Index 0.06 S/CO (0-0.79); HBSAg Index 0.27 S/CO (0-0.99); Hep A IgM AB Non-Reactive (NonReactive); Hep B Surf Ag Non-Reactive S/CO (NonReactive); Hep C IgG Ab Non-Reactive (NonReactive); Hep C Index 0.04 S/CO (0-0.79); Hepatitis B Core IgM Abs Non-Reactive (NonReactive)
[2021-11-18] MEDS: Furosemide 40 MG/4 ML VIAL SLOW IVP SCH ×2 (05:27→13:58)
[2021-11-18] MEDS: Diltiazem HCl SR 60 mg Capsule PO SCH (05:28)
[2021-11-18 05:55] LABS: Calcium 8.7 mg/dL (7.8-10.44); Chloride 107 mmol/L (98-107); Glucose 121 mg/dL (83-110); Potassium 4.1 mmol/L (3.5-5.1); Sodium 142 mmol/L (136-145)
[2021-11-18 07:20] LABS: Anion Gap 14 mmol/L (10-20); BUN (Urea Nitrogen) 29 mg/dL (9.8-20.1); Bilirubin, Total 5.7 mg/dL (0.2-1.2); Calc. Creatinine Clearance 60 mL/min (70-130); Carbon Dioxide 25 mmol/L (23-31); Magnesium 2.3 mg/dL (1.6-2.6)
[2021-11-18 07:37] LABS: #Eosinphils 0.1 thou/uL (0.0-0.7); #Lymphocytes 1.9 thou/uL (1.20-3.40); #Monocytes 0.6 thou/uL (0.11-0.59); #Neutrophils 3.9 thou/uL (1.40-6.50); %Basophils 0.1 % (0.0-1.0); %Lymphocytes 29.6 % (21.0-51.0); %Monocytes 9.3 % (0.0-10.0); Hemoglobin 8.8 g/dL (12.0-16.0); Mean Corpuscular HGB CONC 33.5 g/dL (32.0-36.0); Mean Corpuscular Hemoglobin 34.3 pg (27.0-31.0); Mean Platelet Volume 11.2 fL (7.4-10.4); Platelet Count 102 thou/uL (130-400); RBC Distribution Width 18.7 % (11.5-14.5); Red Blood Cell (RBC) Count 2.55 mill/uL (4.20-5.40); White Blood Cell (WBC) Count 6.5 thou/uL (4.8-10.8)
[2021-11-18] MEDS: Spironolactone 25 MG TAB PO SCH (09:55)
[2021-11-18] MEDS: Bisacodyl 5 MG TAB PO PRN (20:40)
[2021-11-19 05:04] LABS: Anion Gap 15 mmol/L (10-20); BUN (Urea Nitrogen) 35 mg/dL (9.8-20.1); Bilirubin, Total 5.2 mg/dL (0.2-1.2); Calc. Creatinine Clearance 45 mL/min (70-130); Calcium 8.6 mg/dL (7.8-10.44); Carbon Dioxide 28 mmol/L (23-31); Chloride 105 mmol/L (98-107); Glucose 120 mg/dL (83-110); Magnesium 2.1 mg/dL (1.6-2.6); Potassium 3.4 mmol/L (3.5-5.1); Sodium 145 mmol/L (136-145)
[2021-11-19 05:10] LABS: INR-International Normal Ratio 1.7
[2021-11-19] MEDS: Furosemide 40 MG/4 ML VIAL SLOW IVP SCH (05:19)
[2021-11-19 05:59] LABS: Anisocytosis MODERATE=16-30 cells (100X) (0-5/hpf); Band 9 % (5-11); Elliptocytes SLIGHT = 2-5 cells (100X) (0-1/hpf); Hemoglobin 8.4 g/dL (12.0-16.0); Lymphocytes 27 % (21-51); MDiff Complete? YES; Mean Corpuscular HGB CONC 33.5 g/dL (32.0-36.0); Mean Corpuscular Hemoglobin 34.6 pg (27.0-31.0); Mean Platelet Volume 10.7 fL (7.4-10.4); Metamyelocyte 5 % (0-0); Monocytes 1 % (0-10); Myelocyte 7 % (0-0); Neutrophil 50 % (42-75); Nucleated RBC 7 % (0); Platelet Count 147 thou/uL (130-400); Polychromasia MODERATE = 3-4 cells (100X) (0-2/hpf); RBC Distribution Width 18.7 % (11.5-14.5); Red Blood Cell (RBC) Count 2.41 mill/uL (4.20-5.40); Tear Drops SLIGHT = 2-5 cells (100X) (0-1/hpf); White Blood Cell (WBC) Count 6.1 thou/uL (4.8-10.8)
[2021-11-19] MEDS ORDERED: Potassium Chloride 20 MEQ TAB PO SCH (08:00)
[2021-11-19] MEDS: Spironolactone 25 MG TAB PO SCH (09:10)
[2021-11-19] MEDS: Albumin 25% 25 GM/100 ML BOT IVPB SCH ×2 (12:31→18:04)
[2021-11-19] MEDS ORDERED: Spironolactone 25 MG TAB PO SCH (12:38)
[2021-11-19] MEDS: Mirtazapine 15 MG TAB PO SCH (20:50)
[2021-11-20] MEDS: Nitroglycerin 0.4 MG TAB (25 Tab Bottle) SL PRN (02:27)
[2021-11-20] MEDS ORDERED: hydrOXYzine 10 MG TAB PO SCH (02:45)
[2021-11-20 03:08] LABS: Anion Gap 15 mmol/L (10-20); BUN (Urea Nitrogen) 36 mg/dL (9.8-20.1); Calc. Creatinine Clearance 45 mL/min (70-130); Calcium 9.1 mg/dL (7.8-10.44); Carbon Dioxide 28 mmol/L (23-31); Chloride 104 mmol/L (98-107); Glucose 113 mg/dL (83-110); Magnesium 2.1 mg/dL (1.6-2.6); Sodium 144 mmol/L (136-145); Troponin I 1.645 ng/mL (< 0.028)
[2021-11-20 03:09] LABS: Hemoglobin 7.9 g/dL (12.0-16.0); Mean Corpuscular HGB CONC 34.5 g/dL (32.0-36.0); Mean Corpuscular Hemoglobin 35.2 pg (27.0-31.0); Mean Platelet Volume 9.7 fL (7.4-10.4); Platelet Count 177 thou/uL (130-400); RBC Distribution Width 18.9 % (11.5-14.5); Red Blood Cell (RBC) Count 2.25 mill/uL (4.20-5.40); White Blood Cell (WBC) Count 7.7 thou/uL (4.8-10.8)
[2021-11-20] MEDS: Potassium Chloride 20 MEQ TAB PO SCH ×2 (03:28→03:37)
[2021-11-20] MEDS ORDERED: Potassium Bicarbonate/Cit Ac 20 MEQ TAB PO SCH (03:45)
[2021-11-20 04:24] LABS: Band 5 % (5-11); Lymphocytes 30 % (21-51); MDiff Complete? YES; Metamyelocyte 3 % (0-0); Myelocyte 5 % (0-0); Neutrophil 57 % (42-75); Nucleated RBC 6 % (0); Polychromasia SLIGHT = 2-3 cells (100X) (0-2/hpf); Schistocytes SLIGHT = 2-5 cells (100X) (0-1/hpf); Tear Drops SLIGHT = 2-5 cells (100X) (0-1/hpf)
[2021-11-20] MEDS: Furosemide 100 MG/10 ML VIAL FS SCH (05:14)
[2021-11-20] MEDS: Albumin 25% 25 GM/100 ML BOT IVPB SCH ×2 (05:14)
[2021-11-20] MEDS ORDERED: Furosemide 40 MG/4 ML VIAL SLOW IVP SCH (06:00)
[2021-11-20 06:09] LABS: Troponin I 1.945 ng/mL (< 0.028)
[2021-11-20] MEDS: Bisacodyl 5 MG TAB PO PRN (09:33)
[2021-11-20] MEDS: Furosemide 40 MG TAB PO SCH (09:33)
[2021-11-20] MEDS: Spironolactone 100 MG TAB PO SCH (09:33)
[2021-11-20] MEDS ORDERED: Polyethylene Glycol 3350 17 GM Packet PO PRN (10:03)
[2021-11-20 11:05] LABS: ALT (SGPT) 14 U/L (8-55); AST (SGOT) 48 U/L (5-34); Albumin 4.2 g/dL (3.4-4.8); Alkaline Phosphatase 62 U/L (40-110); Bilirubin, Direct 3.4 mg/dL (0.1-0.3); Bilirubin, Total 6.7 mg/dL (0.2-1.2); Protein, Total 5.5 g/dL (5.8-8.1)
[2021-11-20 11:07] LABS: Critical Call Chem Troponin I RESULT DECREASING; Troponin I 1.787 ng/mL (< 0.028)
[2021-11-20 12:01] LABS: INR-International Normal Ratio 1.6; Prothrombin Time 19.2 sec (12.0-14.7)
[2021-11-20] MEDS ORDERED: Potassium Chloride 20 MEQ TAB PO SCH (13:00)
[2021-11-20] MEDS: Mirtazapine 15 MG TAB PO SCH (22:16)
[2021-11-21] MEDS ORDERED: hydrOXYzine 10 MG TAB PO SCH (03:30)
[2021-11-21] MEDS: Furosemide 100 MG/10 ML VIAL FS SCH (06:12)
[2021-11-21 07:39] LABS: INR-International Normal Ratio 1.5; PTT 38.8 sec (22.9-36.1); Prothrombin Time 18.2 sec (12.0-14.7)
[2021-11-21 07:49] LABS: Anisocytosis SLIGHT = 6-15 cells (100X) (0-5/hpf); Band 5 % (5-11); Eosinophils 1 % (0-10); Hypersemented Neutrophil SLIGHT; Lymphocytes 22 % (21-51); MDiff Complete? YES; Macrocytosis SLIGHT = 6-15 cells (100X) (0-5/hpf); Mean Corpuscular HGB CONC 32.8 g/dL (32.0-36.0); Mean Corpuscular Hemoglobin 34.2 pg (27.0-31.0); Mean Platelet Volume 9.4 fL (7.4-10.4); Monocytes 6 % (0-10); Myelocyte 1 % (0-0); Neutrophil 64 % (42-75); Nucleated RBC 4 % (0); Ovalocytes SLIGHT = 2-5 cells (100X) (0-1/hpf); Platelet Clumps SLIGHT; Platelet Count 233 thou/uL (130-400); Platelet Morphology Comment Appears Adequate; Polychromasia SLIGHT = 2-3 cells (100X) (0-2/hpf); RBC Distribution Width 19.3 % (11.5-14.5); Reactive Lymphocytes 1 % (0-10); Red Blood Cell (RBC) Count 2.63 mill/uL (4.20-5.40); Tear Drops SLIGHT = 2-5 cells (100X) (0-1/hpf); White Blood Cell (WBC) Count 8.2 thou/uL (4.8-10.8)
[2021-11-21 07:50] LABS: ALT (SGPT) 14 U/L (8-55); AST (SGOT) 47 U/L (5-34); Albumin 3.6 g/dL (3.4-4.8); Alkaline Phosphatase 65 U/L (40-110); Anion Gap 14 mmol/L (10-20); BUN (Urea Nitrogen) 31 mg/dL (9.8-20.1); Bilirubin, Total 6.1 mg/dL (0.2-1.2); Calc. Creatinine Clearance 59 mL/min (70-130); Calcium 8.9 mg/dL (7.8-10.44); Carbon Dioxide 30 mmol/L (23-31); Chloride 105 mmol/L (98-107); Globulin 1.4 g/dL (2.4-3.5); Glucose 105 mg/dL (83-110); Potassium 3.3 mmol/L (3.5-5.1); Sodium 146 mmol/L (136-145)
[2021-11-21] MEDS ORDERED: Magnesium 2 GM/50 ML(in water) 2 GM in Premix Bag 1 BAG IVPB SCH (09:00)
[2021-11-21] MEDS ORDERED: Potassium Chloride 20 MEQ TAB PO SCH (09:00)
[2021-11-21] MEDS: Spironolactone 100 MG TAB PO SCH ×2 (10:28→10:55)
[2021-11-21] MEDS: Furosemide 40 MG TAB PO SCH (10:28)
[2021-11-21] MEDS: Polyethylene Glycol 3350 17 GM Packet PO SCH (10:29)
[2021-11-21] MEDS: Mirtazapine 15 MG TAB PO SCH (21:13)
[2021-11-22 08:33] LABS: INR-International Normal Ratio 1.4; PTT 28.7 sec (22.9-36.1); Prothrombin Time 17.1 sec (12.0-14.7)
[2021-11-22 08:34] LABS: Albumin 3.5 g/dL (3.4-4.8); Anion Gap 16 mmol/L (10-20); BUN (Urea Nitrogen) 32 mg/dL (9.8-20.1); Bilirubin, Total 6.5 mg/dL (0.2-1.2); Calc. Creatinine Clearance 57 mL/min (70-130); Calcium 9.1 mg/dL (7.8-10.44); Carbon Dioxide 27 mmol/L (23-31); Chloride 107 mmol/L (98-107); Glucose 120 mg/dL (83-110); Potassium 3.7 mmol/L (3.5-5.1); Protein, Total 4.9 g/dL (5.8-8.1); Sodium 146 mmol/L (136-145)
[2021-11-22 08:35] LABS: ALT (SGPT) 15 U/L (8-55); AST (SGOT) 52 U/L (5-34); Alkaline Phosphatase 72 U/L (40-110); Globulin 1.4 g/dL (2.4-3.5)
[2021-11-22 08:40] LABS: Anisocytosis SLIGHT = 6-15 cells (100X) (0-5/hpf); Band 4 % (5-11); Eosinophils 1 % (0-10); Hemoglobin 9.4 g/dL (12.0-16.0); Lymphocytes 15 % (21-51); MDiff Complete? YES; Macrocytosis SLIGHT = 6-15 cells (100X) (0-5/hpf); Mean Corpuscular HGB CONC 34.4 g/dL (32.0-36.0); Metamyelocyte 4 % (0-0); Monocytes 9 % (0-10); Myelocyte 3 % (0-0); Neutrophil 57 % (42-75); Nucleated RBC 4 % (0); Platelet Count 182 thou/uL (130-400); Platelet Morphology Comment Appears Adequate; Polychromasia SLIGHT = 2-3 cells (100X) (0-2/hpf); RBC Distribution Width 19.9 % (11.5-14.5); Reactive Lymphocytes 7 % (0-10); Red Blood Cell (RBC) Count 2.68 mill/uL (4.20-5.40); Schistocytes SLIGHT = 2-5 cells (100X) (0-1/hpf); White Blood Cell (WBC) Count 10.2 thou/uL (4.8-10.8)
[2021-11-22] MEDS: Polyethylene Glycol 3350 17 GM Packet PO SCH (09:24)
[2021-11-22] MEDS: Furosemide 40 MG TAB PO SCH (09:25)
[2021-11-22] MEDS: Spironolactone 100 MG TAB PO SCH (09:25)
[2021-11-22] MEDS: Mirtazapine 15 MG TAB PO SCH (20:13)
[2021-11-23] MEDS ORDERED: Lorazepam 1 MG TAB PO SCH (03:00)
[2021-11-23 05:09] LABS: ALT (SGPT) 15 U/L (8-55); AST (SGOT) 50 U/L (5-34); Albumin 3.5 g/dL (3.4-4.8); Alkaline Phosphatase 81 U/L (40-110); Anion Gap 17 mmol/L (10-20); BUN (Urea Nitrogen) 36 mg/dL (9.8-20.1); Bilirubin, Total 8.4 mg/dL (0.2-1.2); Calc. Creatinine Clearance 46 mL/min (70-130); Calcium 9.1 mg/dL (7.8-10.44); Carbon Dioxide 27 mmol/L (23-31); Chloride 105 mmol/L (98-107); Globulin 1.5 g/dL (2.4-3.5); Glucose 122 mg/dL (83-110); Potassium 3.4 mmol/L (3.5-5.1); Sodium 146 mmol/L (136-145)
[2021-11-23 05:15] LABS: INR-International Normal Ratio 1.5; PTT 37.4 sec (22.9-36.1); Prothrombin Time 18.3 sec (12.0-14.7)
[2021-11-23 05:38] LABS: Band 1 % (5-11); Elliptocytes SLIGHT = 2-5 cells (100X) (0-1/hpf); Hemoglobin 9.9 g/dL (12.0-16.0); Lymphocytes 17 % (21-51); MDiff Complete? YES; Macrocytosis SLIGHT = 6-15 cells (100X) (0-5/hpf); Mean Corpuscular HGB CONC 34.5 g/dL (32.0-36.0); Mean Platelet Volume 9.2 fL (7.4-10.4); Metamyelocyte 3 % (0-0); Monocytes 7 % (0-10); Myelocyte 2 % (0-0); Neutrophil 68 % (42-75); Nucleated RBC 9 % (0); Ovalocytes SLIGHT = 2-5 cells (100X) (0-1/hpf); Platelet Count 306 thou/uL (130-400); Platelet Morphology Comment Appears Adequate; RBC Distribution Width 20.7 % (11.5-14.5); Reactive Lymphocytes 2 % (0-10); Red Blood Cell (RBC) Count 2.82 mill/uL (4.20-5.40); Schistocytes SLIGHT = 2-5 cells (100X) (0-1/hpf); Small Platelets SLIGHT; Tear Drops SLIGHT = 2-5 cells (100X) (0-1/hpf); White Blood Cell (WBC) Count 11.7 thou/uL (4.8-10.8)
[2021-11-23] MEDS ORDERED: Potassium Chloride 20 MEQ TAB PO SCH ×2 (08:00→22:15)
[2021-11-23] MEDS: Polyethylene Glycol 3350 17 GM Packet PO SCH (10:35)
[2021-11-23] MEDS: Spironolactone 100 MG TAB PO SCH (10:35)
[2021-11-23] MEDS: Furosemide 40 MG TAB PO SCH (10:35)
[2021-11-23 14:49] LABS: Base Excess (BEa) 3.9 mEq/L (-2.0 to +3.0); CO2 Tension 35.2 mmHg (35.0-45.0); Calcium, Ionized (arterial) 1.16 mmol/L (1.12-1.30); Carboxyhemoglobin (COHb) 1.5 gm% (0.0-3.0); Hemoglobin (Hb) 10.3 g/dL (12.0-16.0); O2 Tension (PaO2), arterial 71.1 mmHg (> 70.0); Potassium - ABG Lab 3.26 mmol/L (3.70-5.30)
[2021-11-23 14:51] LABS: Puncture Site LRA
[2021-11-23 15:55] LABS: ANA Symphony (Qualitative) Negative (Negative); ANA Symphony (Quantitative) 0.2 Ratio (< 0.7 Negative); dsDNA IgG Antibody Less than 0.5 IU/mL (<10 Negative)
[2021-11-23 17:14] LABS: Mean Corpuscular HGB CONC 32.9 g/dL (32.0-36.0); Mean Corpuscular Hemoglobin 34.4 pg (27.0-31.0); Mean Platelet Volume 9.8 fL (7.4-10.4); Platelet Count 262 thou/uL (130-400); RBC Distribution Width 20.9 % (11.5-14.5); Red Blood Cell (RBC) Count 2.91 mill/uL (4.20-5.40); White Blood Cell (WBC) Count 12.5 thou/uL (4.8-10.8)
[2021-11-23 17:31] LABS: ALT (SGPT) 16 U/L (8-55); AST (SGOT) 55 U/L (5-34); Albumin 3.4 g/dL (3.4-4.8); Alkaline Phosphatase 89 U/L (40-110); Anion Gap 20 mmol/L (10-20); BUN (Urea Nitrogen) 40 mg/dL (9.8-20.1); Bilirubin, Total 10.2 mg/dL (0.2-1.2); Calc. Creatinine Clearance 40 mL/min (70-130); Calcium 9.1 mg/dL (7.8-10.44); Carbon Dioxide 22 mmol/L (23-31); Chloride 107 mmol/L (98-107); Globulin 1.6 g/dL (2.4-3.5); Glucose 124 mg/dL (83-110); Potassium 3.5 mmol/L (3.5-5.1); Sodium 145 mmol/L (136-145)
[2021-11-23 17:35] LABS: Anisocytosis SLIGHT = 6-15 cells (100X) (0-5/hpf); Band 7 % (5-11); Lymphocytes 10 % (21-51); MDiff Complete? YES; Macrocytosis SLIGHT = 6-15 cells (100X) (0-5/hpf); Metamyelocyte 5 % (0-0); Monocytes 5 % (0-10); Myelocyte 2 % (0-0); Neutrophil 71 % (42-75); Nucleated RBC 7 % (0); Ovalocytes SLIGHT = 2-5 cells (100X) (0-1/hpf); Platelet Morphology Comment Appears Adequate; Poikilocytosis SLIGHT = 6-15 cells (100X) (0-5/hpf); Polychromasia MODERATE = 3-4 cells (100X) (0-2/hpf); Schistocytes SLIGHT = 2-5 cells (100X) (0-1/hpf); Spherocytes SLIGHT = 1-5 cells (100X) (None Seen); Tear Drops SLIGHT = 2-5 cells (100X) (0-1/hpf)
[2021-11-23] MEDS ORDERED: Acetaminophen 325 MG Suppository PR SCH (18:15)
[2021-11-23 18:38] LABS: Bacteria/HPF 4+ HPF (None Seen); Bilirubin Negative (Negative); Blood, Urine 3+ (Negative); Clarity Extra Turbid (Clear); Glucose, Urine (Dipstick) Normal (Negative); Ketone, Urine Negative (Negative); Leukocyte 500 Leu/uL (Negative); Nitrite Negative (Negative); Protein, Urine (Dipstick) 200 mg/dL (Neg-Trace); RBC/HPF 0-3 HPF (0-3); Renal Epithelial 0-3 HPF (None Seen); Specific Gravity, Urine 1.012 (1.002-1.036); Squamous Epithelial 0-3 HPF (0-3); Urobilinogen 3 mg/dL (Less than 2); WBC/HPF Greater than 50 HPF (0-3); pH, Urine 7.5 (5.0-9.0)
[2021-11-23 18:40] LABS: Urine Culture Reflex Yes Yes
[2021-11-23] MEDS: Mirtazapine 15 MG TAB PO SCH (22:41)
[2021-11-24] MEDS: Potassium Chloride 20 MEQ in Premix Bag 1 BAG IVPB SCH ×2 (01:02→02:50)
[2021-11-24] MEDS ORDERED: Lorazepam 2 MG/ML VIAL SLOW IVP SCH (03:15)
[2021-11-24 05:02] LABS: INR-International Normal Ratio 1.9; Prothrombin Time 22.2 sec (12.0-14.7)
[2021-11-24 05:03] LABS: PTT 42.9 sec (22.9-36.1)
[2021-11-24 05:05] LABS: ALT (SGPT) 15 U/L (8-55); AST (SGOT) 62 U/L (5-34); Albumin 3.4 g/dL (3.4-4.8); Alkaline Phosphatase 110 U/L (40-110); Anion Gap 19 mmol/L (10-20); BUN (Urea Nitrogen) 45 mg/dL (9.8-20.1); Bilirubin, Total 11.9 mg/dL (0.2-1.2); Calc. Creatinine Clearance 34 mL/min (70-130); Calcium 9.2 mg/dL (7.8-10.44); Carbon Dioxide 26 mmol/L (23-31); Chloride 107 mmol/L (98-107); Globulin 1.6 g/dL (2.4-3.5); Glucose 109 mg/dL (83-110); Sodium 148 mmol/L (136-145)
[2021-11-24 05:12] LABS: Band 5 % (5-11); Hypochromia SLIGHT = 6-15 cells (100X) (0-5/hpf); Lymphocytes 8 % (21-51); MDiff Complete? YES; Macrocytosis SLIGHT = 6-15 cells (100X) (0-5/hpf); Mean Corpuscular HGB CONC 33.3 g/dL (32.0-36.0); Mean Corpuscular Hemoglobin 34.4 pg (27.0-31.0); Mean Platelet Volume 9.4 fL (7.4-10.4); Monocytes 17 % (0-10); Neutrophil 70 % (42-75); Nucleated RBC 8 % (0); Platelet Count 308 thou/uL (130-400); Platelet Morphology Comment Appears Adequate; RBC Distribution Width 21.4 % (11.5-14.5); Red Blood Cell (RBC) Count 2.91 mill/uL (4.20-5.40); White Blood Cell (WBC) Count 12.9 thou/uL (4.8-10.8)
[2021-11-24] MEDS ORDERED: Sodium Chloride 0.9% 500 ML IV SCH (08:00)
[2021-11-24] MEDS: Spironolactone 100 MG TAB PO SCH (09:37)
[2021-11-24] MEDS: Furosemide 40 MG TAB PO SCH (09:37)
[2021-11-24] MEDS: Polyethylene Glycol 3350 17 GM Packet PO SCH (09:37)
[2021-11-24 13:15] LABS: Creatinine, Urine 83.54 mg/dL (47-110); Protein, Urine Random Quant 95 mg/dL (1-14); Sodium, Urine Less than 20 mmol/L (Not Available); Urea Nitrogen, Random Urine 595 mg/dl
[2021-11-24] MEDS: Lorazepam 2 MG/ML VIAL SLOW IVP PRN (13:16)
[2021-11-24] MEDS ORDERED: Albumin 25% 25 GM/100 ML BOT IVPB SCH (13:30)
[2021-11-24] MEDS: Mirtazapine 15 MG TAB PO SCH (19:47)
[2021-11-24] MEDS: Acetaminophen 650 MG Suppository PR PRN (22:22)
[2021-11-25 04:37] LABS: INR-International Normal Ratio 1.9; PTT 49.8 sec (22.9-36.1); Prothrombin Time 22.3 sec (12.0-14.7)
[2021-11-25 04:49] LABS: ALT (SGPT) 15 U/L (8-55); AST (SGOT) 63 U/L (5-34); Albumin 3.4 g/dL (3.4-4.8); Alkaline Phosphatase 89 U/L (40-110); Anion Gap 17 mmol/L (10-20); BUN (Urea Nitrogen) 55 mg/dL (9.8-20.1); Bilirubin, Total 11.4 mg/dL (0.2-1.2); Calc. Creatinine Clearance 29 mL/min (70-130); Calcium 9.3 mg/dL (7.8-10.44); Carbon Dioxide 29 mmol/L (23-31); Chloride 111 mmol/L (98-107); Globulin 1.4 g/dL (2.4-3.5); Glucose 115 mg/dL (83-110); Protein, Total 4.8 g/dL (5.8-8.1); Sodium 153 mmol/L (136-145)
[2021-11-25 05:18] LABS: Anisocytosis SLIGHT = 6-15 cells (100X) (0-5/hpf); Band 15 % (5-11); Hemoglobin 8.8 g/dL (12.0-16.0); Lymphocytes 7 % (21-51); MDiff Complete? YES; Macrocytosis SLIGHT = 6-15 cells (100X) (0-5/hpf); Mean Corpuscular HGB CONC 33.9 g/dL (32.0-36.0); Mean Corpuscular Hemoglobin 34.5 pg (27.0-31.0); Mean Platelet Volume 9.7 fL (7.4-10.4); Metamyelocyte 2 % (0-0); Monocytes 6 % (0-10); Myelocyte 3 % (0-0); Neutrophil 67 % (42-75); Nucleated RBC 1 % (0); Ovalocytes SLIGHT = 2-5 cells (100X) (0-1/hpf); Platelet Count 247 thou/uL (130-400); Platelet Morphology Comment Appears Adequate; RBC Distribution Width 20.9 % (11.5-14.5); Red Blood Cell (RBC) Count 2.56 mill/uL (4.20-5.40); White Blood Cell (WBC) Count 12.5 thou/uL (4.8-10.8)
[2021-11-25] MEDS: Polyethylene Glycol 3350 17 GM Packet PO SCH (09:34)
[2021-11-25] MEDS: Dextrose 5% in Water 1,000 ML IV SCH ×3 (09:59→22:50)
[2021-11-25] MEDS: Acetaminophen 650 MG Suppository PR PRN (13:33)
[2021-11-25] MEDS: Albumin 25% 25 GM/100 ML BOT IVPB SCH ×2 (13:34→22:50)
[2021-11-25] MEDS: Lorazepam 2 MG/ML VIAL SLOW IVP PRN (15:56)
[2021-11-25 16:52] LABS: Anion Gap 18 mmol/L (10-20); BUN (Urea Nitrogen) 58 mg/dL (9.8-20.1); Calc. Creatinine Clearance 31 mL/min (70-130); Calcium 8.8 mg/dL (7.8-10.44); Carbon Dioxide 25 mmol/L (23-31); Chloride 112 mmol/L (98-107); Estimated GFR 25; Glucose 136 mg/dL (83-110); Potassium 3.6 mmol/L (3.5-5.1); Sodium 151 mmol/L (136-145)
[2021-11-25] MEDS: Mirtazapine 15 MG TAB PO SCH (20:09)
[2021-11-26] MEDS: Albumin 25% 25 GM/100 ML BOT IVPB SCH ×3 (05:25→15:36)
[2021-11-26 06:43] LABS: ALT (SGPT) 16 U/L (8-55); AST (SGOT) 69 U/L (5-34); Albumin 3.5 g/dL (3.4-4.8); Alkaline Phosphatase 74 U/L (40-110); Anion Gap 16 mmol/L (10-20); BUN (Urea Nitrogen) 57 mg/dL (9.8-20.1); Bilirubin, Total 11.2 mg/dL (0.2-1.2); Calc. Creatinine Clearance 32 mL/min (70-130); Calcium 8.8 mg/dL (7.8-10.44); Carbon Dioxide 28 mmol/L (23-31); Chloride 109 mmol/L (98-107); Estimated GFR 26; Globulin 1.2 g/dL (2.4-3.5); Glucose 153 mg/dL (83-110); Potassium 3.4 mmol/L (3.5-5.1); Protein, Total 4.7 g/dL (5.8-8.1); Sodium 150 mmol/L (136-145)
[2021-11-26] MEDS ORDERED: Potassium Chloride 20 MEQ TAB PO SCH (08:00)
[2021-11-26 08:25] LABS: Magnesium 2.4 mg/dL (1.6-2.6); Phosphorus 2.8 mg/dL (2.3-4.7)
[2021-11-26 09:06] LABS: Hemoglobin 7.5 g/dL (12.0-16.0); Mean Corpuscular HGB CONC 33.8 g/dL (32.0-36.0); Mean Corpuscular Hemoglobin 34.2 pg (27.0-31.0); Mean Platelet Volume 10.5 fL (7.4-10.4); Platelet Count 179 thou/uL (130-400); RBC Distribution Width 20.4 % (11.5-14.5); White Blood Cell (WBC) Count 12.1 thou/uL (4.8-10.8)
[2021-11-26 09:25] LABS: Iron Binding Capacity, Total 88 mcg/dL (265-497)
[2021-11-26 09:26] LABS: Iron 58 ug/dL (50-170)
[2021-11-26] MEDS: Polyethylene Glycol 3350 17 GM Packet PO SCH (09:46)
[2021-11-26] MEDS ORDERED: Potassium Phosphate 12 MMOL in Sodium Chloride 0.9% 100 ML IVPB SCH (11:00)
[2021-11-26] MEDS: Dextrose 5% in Water 1,000 ML IV SCH ×2 (11:32→20:58)
[2021-11-26 12:49] VITALS: BMI 38.9
[2021-11-26] MEDS: Mirtazapine 15 MG TAB PO SCH (20:59)
[2021-11-27] MEDS: Albumin 25% 25 GM/100 ML BOT IVPB SCH ×3 (00:30→19:15)
[2021-11-27] MEDS: Lorazepam 2 MG/ML VIAL SLOW IVP PRN ×2 (00:30→14:23)
[2021-11-27 06:15] LABS: Anisocytosis MODERATE=16-30 cells (100X) (0-5/hpf); Band 6 % (5-11); Basophilic Stippling MODERATE = 3-5 cells (100X) (None Seen); Elliptocytes SLIGHT = 2-5 cells (100X) (0-1/hpf); Hemoglobin 6.6 g/dL (12.0-16.0); Lymphocytes 18 % (21-51); MDiff Complete? YES; Macrocytosis SLIGHT = 6-15 cells (100X) (0-5/hpf); Mean Corpuscular HGB CONC 33.8 g/dL (32.0-36.0); Mean Corpuscular Hemoglobin 34.4 pg (27.0-31.0); Mean Platelet Volume 11.3 fL (7.4-10.4); Monocytes 4 % (0-10); Neutrophil 72 % (42-75); Nucleated RBC 1 % (0); Platelet Count 133 thou/uL (130-400); Polychromasia MODERATE = 3-4 cells (100X) (0-2/hpf); RBC Distribution Width 21.8 % (11.5-14.5); Red Blood Cell (RBC) Count 1.91 mill/uL (4.20-5.40); Tear Drops MODERATE= 6-15 cells (100X) (0-1/hpf); White Blood Cell (WBC) Count 9.8 thou/uL (4.8-10.8)
[2021-11-27] MEDS: Polyethylene Glycol 3350 17 GM Packet PO SCH (09:38)
[2021-11-27 10:11] LABS: ALT (SGPT) 11 U/L (8-55); AST (SGOT) 51 U/L (5-34); Albumin 3.7 g/dL (3.4-4.8); Alkaline Phosphatase 59 U/L (40-110); Anion Gap 17 mmol/L (10-20); BUN (Urea Nitrogen) 50 mg/dL (9.8-20.1); Bilirubin, Total 11.5 mg/dL (0.2-1.2); Calc. Creatinine Clearance 36 mL/min (70-130); Calcium 8.6 mg/dL (7.8-10.44); Carbon Dioxide 26 mmol/L (23-31); Chloride 109 mmol/L (98-107); Estimated GFR 30; Globulin 1.1 g/dL (2.4-3.5); Glucose 179 mg/dL (83-110); Magnesium 2.2 mg/dL (1.6-2.6); Potassium 3.1 mmol/L (3.5-5.1); Protein, Total 4.8 g/dL (5.8-8.1); Sodium 149 mmol/L (136-145)
[2021-11-27] MEDS ORDERED: Potassium Chloride 20 MEQ TAB PO SCH (11:00)
[2021-11-27] MEDS: Dextrose 5% in Water 1,000 ML IV SCH ×2 (11:21→20:43)
[2021-11-27] MEDS ORDERED: Potassium Phosphate 22 MMOL in Sodium Chloride 0.9% 250 ML 250 ML IVPB SCH (15:00)
[2021-11-27] MEDS: Mirtazapine 15 MG TAB PO SCH (20:44)
[2021-11-28] MEDS: Albumin 25% 25 GM/100 ML BOT IVPB SCH (01:42)
[2021-11-28] MEDS: Dextrose 5% in Water 1,000 ML IV SCH (05:51)
[2021-11-28 06:43] LABS: ALT (SGPT) 9 U/L (8-55); AST (SGOT) 40 U/L (5-34); Albumin 3.9 g/dL (3.4-4.8); Alkaline Phosphatase 51 U/L (40-110); Anion Gap 15 mmol/L (10-20); BUN (Urea Nitrogen) 49 mg/dL (9.8-20.1); Bilirubin, Total 10.3 mg/dL (0.2-1.2); Calc. Creatinine Clearance 37 mL/min (70-130); Carbon Dioxide 28 mmol/L (23-31); Chloride 109 mmol/L (98-107); Estimated GFR 30; Globulin 0.9 g/dL (2.4-3.5); Glucose 150 mg/dL (83-110); Protein, Total 4.8 g/dL (5.8-8.1); Sodium 149 mmol/L (136-145)
[2021-11-28] MEDS ORDERED: Potassium Chloride 20 MEQ TAB PO SCH (08:00)
[2021-11-28] MEDS ORDERED: Dextrose 5% in Water 1,000 ML IV SCH (08:03)
[2021-11-28] MEDS: Potassium Chloride 20 MEQ in Premix Bag 1 BAG IVPB SCH ×2 (08:05→10:21)
[2021-11-28 09:18] VITALS: BP 98/60; TEMP 97.9
[2021-11-28] MEDS: Polyethylene Glycol 3350 17 GM Packet PO SCH (10:20)
== END 2021-11-28 14:25 | disposition hospice, home (50) | DRG 808 ==
LOC: ERS 12:53 → 2NO 15:35 → MSONC 11-25 17:54
PROVIDERS: ADMIT Internal Medicine; ATTEND Internal Medicine
PROC: 30233N1 Transfusion of Nonautologous Red Blood Cells into Peripheral Vein, Percutaneous Approach (ICD-10-PCS; principal; 2021-11-13)
PROC: 6A550Z2 Pheresis of Platelets, Single (ICD-10-PCS; 2021-11-15)
DX: D61.810 Antineoplastic chemotherapy induced pancytopenia (principal); Z20.822 Contact with and (suspected) exposure to COVID-19; Z51.5 Encounter for palliative care; G93.41 Metabolic encephalopathy; K76.7 Hepatorenal syndrome; I21.A1 Myocardial infarction type 2; E87.1 Hypo-osmolality and hyponatremia; N17.9 Acute kidney failure, unspecified; C78.7 Secondary malignant neoplasm of liver and intrahepatic bile duct; I13.0 Hypertensive heart and chronic kidney disease with heart failure and stage 1 through stage 4 chronic kidney disease, or unspecified chronic kidney disease; D68.4 Acquired coagulation factor deficiency; E46 Unspecified protein-calorie malnutrition; E87.0 Hyperosmolality and hypernatremia; N39.0 Urinary tract infection, site not specified; C78.2 Secondary malignant neoplasm of pleura; K71.10 Toxic liver disease with hepatic necrosis, without coma; K21.9 Gastro-esophageal reflux disease without esophagitis; M19.90 Unspecified osteoarthritis, unspecified site; E87.6 Hypokalemia; R74.8 Abnormal levels of other serum enzymes; T45.1X5A Adverse effect of antineoplastic and immunosuppressive drugs, initial encounter; I95.89 Other hypotension; C50.912 Malignant neoplasm of unspecified site of left female breast; I87.2 Venous insufficiency (chronic) (peripheral); E80.6 Other disorders of bilirubin metabolism; N18.2 Chronic kidney disease, stage 2 (mild); K80.20 Calculus of gallbladder without cholecystitis without obstruction; I08.3 Combined rheumatic disorders of mitral, aortic and tricuspid valves; F41.9 Anxiety disorder, unspecified; I50.9 Heart failure, unspecified; R47.81 Slurred speech; R62.7 Adult failure to thrive; I48.0 Paroxysmal atrial fibrillation; E86.9 Volume depletion, unspecified; T50.1X5A Adverse effect of loop [high-ceiling] diuretics, initial encounter; Z53.20 Procedure and treatment not carried out because of patient's decision for unspecified reasons; Z68.39 Body mass index [BMI] 39.0-39.9, adult; Z88.1 Allergy status to other antibiotic agents; Z88.0 Allergy status to penicillin; Z90.12 Acquired absence of left breast and nipple; Z90.89 Acquired absence of other organs; Z98.890 Other specified postprocedural states; Z79.899 Other long term (current) drug therapy
CPT/HCPCS: 36415; 36416; 36430; 36600; 70450; 70470; 71045; 71275; 74177; 76705; 80048; 80053; 80074; 80076; 81001; 82140; 82247; 82248; 82274; 82553; 82570; 82728; 82805; 82977; 83010; 83540; 83550; 83615; 83735; 83880; 84100; 84156; 84300; 84484; 84540; 85025; 85027; 85046; 85049; 85060; 85300; 85362; 85379; 85384; 85610; 85730; 86038; 86225; 86850; 86880; 86900; 86901; 87077; 87086; 87186; 93005; 93010; 93306; 93970; J1160; J1642; J1940; J1956; J2060; J2405; J3430; J3475; J3480; J3490; J7030; J7050; J7070; P9016; P9035; P9047; Q9966; U0002; U0003; U0005